=== PATIENT | male | born 1975 | race Caucasian/White ===

== ENCOUNTER 2021-05-26 22:15 | Emergency (ER) | payer OTHER ==
[~2021-05-26] VITALS: Ht 195.6 cm; Wt 126.1 kg
[~2021-05-26 22:15] MED LIST: BELPTAB PO; PANT20; RXHYDACE PO; [UNRECOGNIZED DRUG - OTHER] PO
== END 2021-05-27 01:46 | disposition home or self-care (01) ==
LOC: ER 22:15
DX: U07.1 COVID-19 (principal); Z88.5 Allergy status to narcotic agent
CPT/HCPCS: 71045; 93005; 93010; 96372; 99283-25; A9270; J1885